=== PATIENT | male | born 1935 | race Caucasian/White ===

== ENCOUNTER 2022-03-27 13:22 | Emergency (ER) | payer MEDICARE, OTHER | END 2022-03-27 15:35 | disposition home or self-care (01) | LOC: CC.ED 13:22 | DX: E86.0 Dehydration (principal); D72.829 Elevated white blood cell count, unspecified; T81.89XA Other complications of procedures, not elsewhere classified, initial encounter; I11.0 Hypertensive heart disease with heart failure; I50.9 Heart failure, unspecified; Z79.01 Long term (current) use of anticoagulants; Z79.899 Other long term (current) drug therapy | CPT/HCPCS: 71046; 81001; 99284; 99285 ==